=== PATIENT | female | born 1960 | race Caucasian/White ===

== ENCOUNTER 2017-01-16 16:02 | Emergency (ER) | payer SELFPAY ==
[~2017-01-16] VITALS: Ht 165.1 cm; Wt 67.4 kg
[~2017-01-16 16:02] MED LIST: LISI-167 PO
[2017-01-16] MEDS ORDERED: DIPHENHYDRAMINE 50 MG/ML, 1ML ONE (16:18)
[2017-01-16] MEDS ORDERED: PROCHLORPERAZINE 5 MG/ML, 2ML ONE (16:18)
[2017-01-16] MEDS ORDERED: DIAZEPAM 5 MG/ML, 2ML ONE (16:27)
[2017-01-16] MEDS ORDERED: KETOROLAC 30 MG/1 ML ONE (16:27)
[2017-01-16] MEDS ORDERED: SODIUM CHLORIDE 0.9% 1,000ML IVBOLUS ONE (16:30)
[2017-01-16] MEDS ORDERED: PROCHLORPERAZINE 5 MG/ML, 2ML IVPush ONE (16:30)
[2017-01-16] MEDS ORDERED: DIPHENHYDRAMINE 50 MG/ML, 1ML IVPush ONE (16:30)
[2017-01-16] MEDS ORDERED: DIAZEPAM 5 MG/ML, 2ML IM ONE (16:30)
[2017-01-16] MEDS ORDERED: KETOROLAC 60 MG/2 ML IM ONE (16:30)
[2017-01-16 18:15] VITALS: BP 158/98
== END 2017-01-16 18:16 | disposition home or self-care (01) ==
LOC: ED 18:10
DX: G44.209 Tension-type headache, unspecified, not intractable (principal); I10 Essential (primary) hypertension
CPT/HCPCS: 96372; 99284; J1885; J3360

== ENCOUNTER 2018-12-30 23:01 | Emergency (ER) | payer MEDICAID ==
[~2018-12-30] VITALS: Ht 165.1 cm; Wt 75.0 kg
[2018-12-30] MEDS ORDERED: SODIUM CHLORIDE FLUSH 10ML SYR IVF ONE (23:30)
[2018-12-30] MEDS ORDERED: MORPHINE SULFATE 4 MG/ML, 1ML IVPush PRN (23:30)
[2018-12-30] MEDS ORDERED: NITROGLYCERIN OINT 2%, 1GM TP ONE ×2 (23:30→23:55)
[2018-12-30] MEDS ORDERED: LABETALOL 5MG/ML, 20ML IVPush ONE (23:30)
[2018-12-30] MEDS ORDERED: MORPHINE SULFATE 4 MG/ML, 1ML ONE (23:55)
[2018-12-31 00:13] LABS: BASOPHILS # (AUTO) 0.06 x10^3/uL (0-0.1); BASOPHILS % (AUTO) 1 % (0-1); EOSINOPHILS # (AUTO) 0.22 x10^3/uL (0-0.4); EOSINOPHILS % (AUTO) 3 % (1-7); LYMPHOCYTES # (AUTO) 3.31 x10^3/uL (1-3.4); LYMPHOCYTES % (AUTO) 42 % (22-44); MD NO; MEAN CORPUSCULAR HEMOGLOBIN 29.5 pg (27.0-34.8); MEAN CORPUSCULAR VOLUME 86.8 fL (80-100); MEAN PLATELET VOLUME 7.8 fL (7.4-10.4); MONOCYTES # (AUTO) 0.55 x10^3/uL (0.2-0.8); MONOCYTES % (AUTO) 7 % (2-9); NEUTROPHILS # (AUTO) 3.69 x10^3/uL (1.8-6.8); NEUTROPHILS % (AUTO) 47 % (42-75); PLATELET COUNT 299 x10^3/uL (130-400); RED CELL DISTRIBUTION WIDTH 13.6 % (9.6-15.2)
[2018-12-31 00:24] LABS: ALANINE AMINOTRANSFERASE 17 U/L (12-78); ALBUMIN 3.9 g/dL (3.4-5.0); ANION GAP 5 mmol/L (5-15); CALCIUM 8.9 mg/dL (8.5-10.1); CHLORIDE 112 mmol/L (98-107); CREATININE 1.07 mg/dL (0.55-1.02)
[2018-12-31 00:29] LABS: ALKALINE PHOSPHATASE 132 U/L (45-117); BILIRUBIN,TOTAL 0.1 mg/dL (0.2-1.0); TOTAL PROTEIN 7.1 g/dL (6.4-8.2); TROPONIN I < 0.015 ng/mL (0.000-0.045)
[2018-12-31] MEDS ORDERED: LISI-167 PO (01:00)
[2018-12-31 01:22] VITALS: BP 153/81
--- NOTE | 2018-12-31 01:41 | NUR ---
Patient given discharge instructions and they have confirmed that they understand the instructions. Patient ambulatory with steady gait.
== END 2018-12-31 01:43 | disposition home or self-care (01) ==
LOC: ED 23:59
DX: I10 Essential (primary) hypertension (principal); F41.1 Generalized anxiety disorder; F17.200 Nicotine dependence, unspecified, uncomplicated
CPT/HCPCS: 36415; 71045; 80053; 83880; 84484; 85025; 93005; 96374; 96375; 99284